=== PATIENT | male | born 1960 | race Caucasian/White ===

== ENCOUNTER 2018-10-08 18:25 | Emergency (ER) | payer BC ==
[2018-10-08] MEDS ORDERED: MAGNESIUM HYDROXIDE/AL HYDROX 30 ML, LIDOCAINE VISC 2% 15ML 15 ML PO ONE ×2 (18:36)
--- NOTE | 2018-10-08 18:40 | Emergency Department Record ---
History of Present Illness - General Chief Complaint: Abdominal Pain Stated Complaint: LOWER LT ABDOMINAL PAIN Time Seen by Provider: 10/08/18 18:36 Source: Patient Mode of Arrival: Ambulatory Limitations: No limitations - History of Present Illness Initial Comments: 58 yo male presents to ED for evaluation of diffuse abdominal pain for the past several days. Patient denies fevers, chills, nausea, vomiting, or loose stools (reports constipation). Patient reports pain to the epigastric region, has taken Prilosec for his symptoms with mild improvement. Patient rates his pain at 6/10. Patient denies health problems at his baseline, denies previous abdominal surgery. MD Complaint: Abdominal pain Onset/Timin -: Days(s) Location: Epigastric Migration to: No migration Severity: Moderate Severity scale (1-10): 6 Quality: Aching Consistency: Constant Improves With: Other (PPI) Worsens With: Nothing Associated Symptoms: Constipation Treatments Prior to Arrival: Antacids - Related Data Home Medications Medication Instructions Recorded Confirmed Last Taken Diphenhydramine HCl 10/08/18 Unknown Loratadine [Claritin] 10/08/18 Unknown Omeprazole Magnesium [Prilosec Otc] 20 mg PO DAILY 10/08/18 10/08/18 Unknown Allergies Allergy/AdvReac Type Severity Reaction Status Date / Time Penicillins Allergy Mild PT UNSURE Verified 10/08/18 18:54 OF REACTION amoxicillin Allergy PT UNSURE Verified 10/08/18 18:54 OF REACTION cephalexin [From Keflex] Allergy PT UNSURE Verified 10/08/18 18:54 OF REACTION Review of Systems Constitutional: Denies: Chills, Fever, Malaise, Night sweats Eyes: Denies: Eye discharge, Eye pain ENT: Denies: Congestion, Ear pain, Epistaxis Respiratory: Denies: Cough, Dyspnea Cardiovascular: Denies: Chest pain, Dyspnea on exertion Endocrine: Denies: Fatigue, Heat or cold intolerance Gastrointestinal: Reports: Abdominal pain, Constipation. Denies: Nausea, Vomiting Genitourinary: Denies: Testicular pain, Testicular mass Musculoskeletal: Denies: Arthralgia, Back pain Skin: Denies: Bruising, Change in color Neurological: Denies: Abnormal gait, Confusion, Headache Psychiatric: Denies: Anxiety Hematological/Lymphatic: Denies: Anemia, Blood Clots Physical Exam - General General Appearance: Alert, Oriented x3, Cooperative, Mild distress Limitations: No limitations - Head Head exam: Atraumatic, Normocephalic, Normal inspection Head exam detail: negative: Abrasion, Contusion, Justin's sign, General tenderness, Hematoma, Laceration - Eye Eye exam: Normal appearance. negative: Conjunctival injection, Periorbital swelling, Periorbital tenderness, Scleral icterus - ENT Ear exam: negative: Auricular hematoma, Auricular trauma Nasal Exam: negative: Active bleeding, Discharge, Dried blood, Foreign body Mouth exam: negative: Drooling, Laceration, Muffled voice, Tongue elevation - Neck Neck exam: Normal inspection. negative: Meningismus, Tenderness - Respiratory Respiratory exam: Normal lung sounds bilaterally. negative: Respiratory distress, Rhonchi, Stridor, Wheezes - Cardiovascular Cardiovascular Exam: Regular rate, Normal rhythm, Normal heart sounds - GI/Abdominal GI/Abdominal exam: Soft, Tenderness (Mild, diffuse TTP on examination). negative: Rebound, Rigid - Rectal Rectal exam: Deferred - exam: Deferred - Extremities Extremities exam: Normal inspection. negative: Pedal edema, Tenderness - Back Back exam: Denies: CVA tenderness (R), CVA tenderness (L) - Neurological Neurological exam: Alert, Normal gait, Oriented X3 - Psychiatric Psychiatric exam: Normal affect, Normal mood - Skin Skin exam: negative: Abrasion Type of lesion: negative: abrasion Course - Reevaluation(s) Reevaluation #1: 10/08/18 19:49 Laboratory studies were reviewed and are grossly unremarkable for an acute process except for the following: WBC 14.2 Glucose 266 Reevaluation #2: 10/08/18 20:28 CT Abdomen and Pelvis: Findings c/w pancreatitis of the tail of the pancreas No necrosis No focal fluid collection No mass No gall stones Reevaluation #3: 10/08/18 20:53 Patient was reassessed following Fentanyl administration, he is tolerating PO and appears stable for discharge at this time. Patient was encouraged to return to the ED for further evaluation if his symptoms worsen for possible admission at that time. Also discussed following up with a PCP for elevated glucose level in the next 1- 2 weeks as directed. Patient appears stable for discharge at this time. Medical Decision Making - Lab Data Result diagrams: 10/08/18 19:07 10/08/18 19:07 Disposition Disposition: Discharge Clinical Impression: Hyperglycemia Pancreatitis Qualifiers: Chronicity: acute Pancreatitis type: unspecified pancreatitis type Acute pancreatitis complication: no infection or necrosis Qualified Code(s): K85.90 - Acute pancreatitis without necrosis or infection, unspecified Disposition: Home, Self-Care Condition: (2) Stable Instructions: Pancreatitis (ED) Additional Instructions: Return to ED if your symptoms worsen or if you have any concerns. Drink plenty of fluids, rest as directed. Follow-up with a primary care provider in 3-5 days as directed. Forms: Patient Portal Access Time of Disposition: 20:55 Quality - Quality Measures Quality Measures: N/A - Blood Pressure Screening Does Patient Have Any of the Following: No Blood Pressure Classification: Hypertensive Reading Systolic Measurement: 158 Diastolic Measurement: 105 Screening for High Blood Pressure: < First Hypertensive BP, F/U Documented > [ [id number]] First Hypertensive Follow-up Interventions: Referral to alternative/primary care provider.
[2018-10-08 19:16] LABS: BASO % 0.1 % (0-6); EOS % 0.9 % (0-6); GRAN % 79.7 % (47-80); HEMOGLOBIN 15.3 gm/dl (14.0-18.0); LYMPH % 10.1 % (16-45); MEAN CELL VOLUME 88.5 fl (81-97); MEAN CORPUSCULAR HEMOGLOBIN 30.8 pg (27-33); MEAN CORPUSCULAR HGB CONC 34.8 g/dl (32-36); MEAN PLATELET VOLUME 9.2 fl (7.4-10.4); MONO % 9.2 % (0-9); PLATELET COUNT 239 K/uL (130-400); RED BLOOD COUNT 4.97 M/uL (4.40-5.70); RED CELL DISTRIBUTION WIDTH 12.7 % (11.5-14.5); WHITE BLOOD COUNT W/O DIFF 14.2 K/uL (4.2-12.2)
[2018-10-08 19:28] LABS: BLOOD UREA NITROGEN 12 mg/dL (6-20); CREATININE 0.9 mg/dL (0.7-1.2); EST GLOMERULAR FILTRATION RATE > 60 mL/min; TOTAL PROTEIN 6.6 g/dL (6.6-8.7)
[2018-10-08 19:29] LABS: LIPASE 40 U/L (13-60)
[2018-10-08 19:30] LABS: GLUCOSE,RANDOM 266 mg/dL (74-109)
[2018-10-08 19:33] LABS: ALB/GLOB RATIO 1.8 (1.1-1.8); ALBUMIN 4.2 g/dL (4.0-5.0); ALKALINE PHOSPHATASE 116 U/L (40-129); ALT/SGPT 28 U/L (<41); AST/SGOT 13 U/L (10.0-50.0)
[2018-10-08 19:40] LABS: URINE APPEARANCE CLEAR; URINE BILIRUBIN NEGATIVE (NEGATIVE); URINE BLOOD NEGATIVE (NEGATIVE); URINE COLOR YELLOW; URINE KETONE NEGATIVE (NEGATIVE); URINE LEUKOCYTE ESTERASE NEGATIVE (NEGATIVE); URINE NITRITE NEGATIVE (NEGATIVE); URINE PROTEIN TRACE (NEGATIVE); URINE UROBILINOGEN 0.2 E.U./dL (0.20 - 1.00)
[2018-10-08 19:41] LABS: URINE GLUCOSE (UA) >=1000 mg/dL (NEGATIVE)
[2018-10-08] MEDS ORDERED: FENTANYL PF 100MCG/2ML VIAL IVP ONE (20:07)
[2018-10-08] MEDS ORDERED: IBUPROFEN 400 MG TABLET PO ONE (21:11)
== END 2018-10-08 21:15 | disposition home or self-care (01) ==
LOC: ER 18:25
DX: K85.90 Acute pancreatitis without necrosis or infection, unspecified (principal); R73.9 Hyperglycemia, unspecified
CPT/HCPCS: 74177; 80053; 81003; 83690; 85025; 96374; 99284